=== PATIENT | female | born 1985 | race Caucasian/White ===

== ENCOUNTER 2018-02-18 13:39 | Emergency (ER) | payer SELFPAY ==
[~2018-02-18] VITALS: Ht 162.6 cm; Wt 68.2 kg
[2018-02-18] MEDS ORDERED: LIDOCAINE/PF 1% 5 ML VIAL INJ ONE (14:15)
[2018-02-18] MEDS ORDERED: BACITRACIN 0.9 GM PACKET OINTMENT TP ONE (14:15)
[2018-02-18] MEDS ORDERED: LORazepam 2 MG/ML VIAL IM ONE (15:15)
[2018-02-18 15:52] VITALS: BP 125/79
== END 2018-02-18 16:03 | disposition home or self-care (01) ==
LOC: EMS 13:41
DX: S01.21XA Laceration without foreign body of nose, initial encounter (principal); F15.90 Other stimulant use, unspecified, uncomplicated; F12.90 Cannabis use, unspecified, uncomplicated; W45.8XXA Other foreign body or object entering through skin, initial encounter; Y93.89 Activity, other specified; Y92.89 Other specified places as the place of occurrence of the external cause; Y99.8 Other external cause status
CPT/HCPCS: 12013; 96372; 99283; J2060; J3490

== ENCOUNTER 2018-02-23 09:43 | Emergency (ER) | payer SELFPAY ==
[~2018-02-23] VITALS: Ht 162.6 cm; Wt 68.0 kg
[2018-02-23 09:46] VITALS: BP 139/87
== END 2018-02-23 10:37 | disposition home or self-care (01) ==
LOC: EMS 09:44
DX: S01.21XD Laceration without foreign body of nose, subsequent encounter (principal); F12.90 Cannabis use, unspecified, uncomplicated; Z48.02 Encounter for removal of sutures; W45.8XXD Other foreign body or object entering through skin, subsequent encounter